=== PATIENT | female | born 2005 | race African-American/Black ===

== ENCOUNTER 2023-08-07 16:32 | Emergency (ER) | payer OTHER, SELFPAY ==
[2023-08-07 16:59] VITALS: BP 135/83; PULSE 88; RESP 17; TEMP 36.6; O2SAT 100
--- NOTE | 2023-08-07 17:49 | PC.NURSE ---
pt states that she wants std/sti testing since its been awhile . states her boyfriend was here earlier and feels like his body isnt right. pt denies pain or discharge. does c/o an odor.
--- NOTE | 2023-08-07 18:17 | ED.FEMALEGU ---
HPI - Female Genitourinary General Chief complaint: [employer] Stated complaint: std testing Time Seen by Provider: 08/07/23 17:49 Source: patient Mode of arrival: ambulatory Limitations: no limitations History of Present Illness HPI Narrative: This is a 18-year-old female that presents to the emergency department for STD check. Reports she has noticed some foul-smelling discharge on and off for the last month. Reports her significant other recently also had STD check which was negative. She has no SIRS parents. Denies fever, dysuria, hematuria, or rashes. Related Data Allergies Allergy/AdvReac Type Severity Reaction Status Date / Time No Known Allergies Allergy Verified 08/07/23 16:41 Review of Systems Review of Systems: CONSTITUTIONAL: Denies fever GENITOURINARY: Denies dysuria or hematuria. SKIN: Denies rash All systems reviewed & are unremarkable except as noted in HPI and below PMFSH Past Medical History Medical History (Updated 08/07/23 @ 20:15 by Leora Stafford PA-C) History of asthma Social History Social History (Updated 08/07/23 @ 18:18 by Leora Stafford PA-C) Smoking status: Never smoker Exam Narrative: GENERAL: Well-appearing, well-nourished, and in no acute distress. HEAD: Normocephalic, atraumatic. EYES: EOMI. EXTREMITIES: Normal range of motion. No edema. SKIN: Warm, dry, no rash. NEURO: No focal deficits. Alert and oriented x3. PSYCH: Normal mood and affect PELVIC: No abnormal rashes or lesions noted. Small amount of white cervical discharge. IUD strings noted Course Course Emergency Course: Patient updated on workup and agrees with plan of care Vital Signs Vital signs: Vital Signs Temperature 97.9 F 08/07/23 16:59 Pulse Rate 88 08/07/23 16:59 Respiratory Rate 17 08/07/23 16:59 Blood Pressure 135/83 08/07/23 16:59 Pulse Oximetry 100 08/07/23 16:59 Temperature 97.9 F 08/07/23 16:59 Pulse Rate 88 08/07/23 16:59 Respiratory Rate 17 08/07/23 16:59 Blood Pressure 135/83 08/07/23 16:59 Pulse Oximetry 100 08/07/23 16:59 MDM - Female Genitourinary MDM Narrative Medical decision making narrative: Patient presents to the emergency department for an STD check. Reporting intermittent foul smelling discharge, otherwise has no focal complaints. She is afebrile and nontoxic appearing. No concerning findings on exam. UA without evidence of infection. Chlamydia, gonorrhea and Trichomonas are negative. HIV screen is negative. Genital culture and RPR sent. Patient was updated on workup. Instructed to follow up for further test results. She was given warnings to return to the ER Differential Diagnosis Differential diagnosis: Likely urinary tract infection, bacterial vaginosis, trichomoniasis, cervicitis, vaginitis and cystitis Lab Data Attestation: I reviewed the patient's lab results. Labs: Lab Results 08/07/23 08/07/23 08/07/23 Range/Units 16:58 18:08 18:48 Urine Color Yellow (Yellow) Urine Appearance Clear (Clear) Urine pH 6.5 (5.0-9.0) Ur Specific [place] 1.021 (1.001-1.035) Urine Protein Negative (Negative) mg/dL Urine Glucose (UA) Negative (Negative) mg/dL Urine Ketones Negative (Negative) mg/dL Ur Blood (Man) Negative (Negative) Urine Nitrate Negative (Negative) Urine Bilirubin Negative (Negative) Urine Urobilinogen 1.0 (<2.0) mg/dL Leukocyte Esterase Rfl Negative (Negative) DOROTHEA/UL Urine Test Negative RPR Pending C. trachomatis (PCR) Not detected (NOT DETECTE) HIV 1&2 Ab/P24 Ag 4thGn Negative (Negative) N. gonorrhoeae (PCR) Not detected (NOT DETECTE) T. vaginalis (PCR) Not detected (NOT DETECTE) Critical Care Time Critical Care Time Critical Care Time: No Discharge Plan Discharge Clinical Impression: Concern about STD in female without diagnosis Patient Disposition: Home, Self-Care Condit
[2023-08-07 18:21] LABS: Appearance Urine Clear (Clear); Bilirubin Urine Negative (Negative); Blood Urine Negative (Negative); Color Urine Yellow (Yellow); Glucose Urine UA Negative (Negative); Ketones Urine Negative (Negative); Leukocyte Esterase Ur Negative LEU/UL (Negative); Nitrate Urine Negative (Negative); Protein Urine Negative (Negative); Specific Grav Ur 1.021 (1.001-1.035); pH Urine 6.5 (5.0-9.0)
[2023-08-07 18:24] LABS: Add Urine Microscopic? NO
[2023-08-07 19:23] LABS: Trichomonas Vag PCR NOT DETECTED (NOT DETECTE)
[2023-08-07 19:46] LABS: Chlamydia trachomatis NOT DETECTED (NOT DETECTE); Neisseria gonorrhoeae PCR NOT DETECTED (NOT DETECTE)
[2023-08-07 19:48] LABS: HIV 1/2 Ab P24 Ag Result Negative (Negative)
[2023-08-07 19:49] LABS: Pregnancy On Board Control Positive; Urine Pregnancy Test Negative
[2023-08-12 14:53] LABS: Rapid Plasma Reagin Non-Reactive (NonReactive)
== END 2023-08-07 20:26 | disposition home or self-care (01) ==
PROVIDERS: Emergency Provider Physician Assistant
DX: N89.8 Other specified noninflammatory disorders of vagina (principal); J45.909 Unspecified asthma, uncomplicated
CPT/HCPCS: 36415; 81003; 81025; 86592; 86703; 87070; 87491; 87591; 87661; 99284; G0432